=== PATIENT | female | born 1970 | race Caucasian/White ===

== ENCOUNTER 2018-06-20 16:21 | Emergency (ER) | payer OTHER ==
[~2018-06-20] VITALS: Ht 172.7 cm; Wt 83.9 kg
[~2018-06-20 16:21] MED LIST: ADDERALL 20 MG20 MG PO; ADDERALL PO; CELEXA20 MG PO; FIORINAL 50-321 EACH PO; HYDROCODON-ACE1 EA15 PO; IBUPROFEN400 MG PO; LORAZEPAM PO; LORAZEPAM2 MG PO
[2018-06-20] MEDS ORDERED: SODIUM CHLORIDE 0.9% 1000ML 1,000 ML IV STA (17:40)
[2018-06-20] MEDS ORDERED: FAMOTIDINE 20 MG/2 ML VIAL IV ONE (17:45)
[2018-06-20] MEDS ORDERED: ONDANSETRON HCL INJ 2MG/ML 2ML 2 MG/ML VIAL IV ONE (17:45)
[2018-06-20] MEDS ORDERED: KETOROLAC TROMETHAMINE 30 MG/ML VIAL IV ONE (19:00)
--- NOTE | 2018-06-20 19:19 | Diagnostic Imaging Report ---
EXAM: CT Abdomen and Pelvis WITH contrast INDICATION: Left lower quadrant abdominal pain. Dysuria. COMPARISON: None. TECHNIQUE: Abdomen and pelvis were scanned utilizing a multidetector helical scanner from the lung base to the pubic symphysis after administration of IV contrast. Coronal and sagittal reformations were obtained. Routine protocol was performed. Scan was performed when during portal venous phase. IV CONTRAST: 100 cc [id number]. ORAL CONTRAST: Water RADIATION DOSE: Total DLP: 697.80 mGy*cm Estimated effective dose: (DLP x 0.015 x size factor) mSv COMPLICATIONS: None FINDINGS: LINES and TUBES: None. LOWER THORAX: Unremarkable HEPATOBILIARY: 2 small hepatic hypodensities are too small to be characterize, however, most suggestive of benign etiology such as small cysts. No biliary ductal dilation. GALLBLADDER: Surgically absent. SPLEEN: No splenomegaly. PANCREAS: No focal masses or ductal dilatation. ADRENALS: No adrenal nodules KIDNEYS/URETERS: Kidneys enhance symmetrically. No hydronephrosis. No cystic or solid mass lesions. No stones. GI TRACT: No abnormal distention, wall thickening, or evidence of bowel obstruction. There is mild fatty infiltration of the descending colon and sigmoid colon wall which is nonspecific finding, however, which can be seen in chronic inflammatory bowel disease in the proper clinical setting. Appendix is nonvisualized, however, no evidence of appendicitis. PELVIC ORGANS/BLADDER: The uterus is absent. Bilateral ovaries are unremarkable. The urinary bladder is under distended, however, grossly unremarkable. Multiple small pelvic phleboliths. LYMPH NODES: No lymphadenopathy. VESSELS: There is mild atherosclerotic disease in the aorta and major arterial branches. PERITONEUM / RETROPERITONEUM: No free air or fluid. 2.4 cm fat attenuation structure with increased density surrounding inflammatory changes abutting the distal descending colon measuring 2.5 cm on axial images 64 and also seen on coronal image 48 consistent with epiploic appendagitis (not diverticulitis). BONES: Unremarkable. SOFT TISSUES: Unremarkable. IMPRESSION: 1. Left lower quadrant epiploic appendagitis (descending colon). Signed by: Dr. Raudel Pollack M.D. on 06/20/2018 7:16 PM
[2018-06-20 19:40] VITALS: BP 167/89
== END 2018-06-20 19:42 | disposition home or self-care (01) ==
LOC: FSED 16:21
DX: R10.32 Left lower quadrant pain (principal); K63.89 Other specified diseases of intestine
CPT/HCPCS: 74177; 80053; 81003; 85025; 99284; J1885; J2405; J7030

== ENCOUNTER → 2023-10-04 | Outpatient (REF) | payer OTHER ==
[~2023-10-04] MED LIST changes: +ARIPIPRAZOLE2 MG PO; +CYCLOBENZAPRINE10 MG PO; +GABAPENTIN300 MG PO; +IOPAMIDOL 370 MG/ML 100 ML INFUS..BTL INJ ONE; +LEVOTHYROXINE50 MCG PO; +LOSARTAN POTASS50 MG PO; +METHOCARBAMOL750 MG PO; +PROVENTIL HFA6.7 GM INH; +ROPINIROLE HCL1 MG PO; +ROSUVASTATIN CAL5 MG PO; +SYMBICORT 16010.2 GM INH; +TRAZODONE HCL50 MG PO; +VENLAFAXINE HC150 MG PO
[2023-10-04 14:12] LABS: CREATININE, SERUM 0.87 mg/dL (0.57-1.11)
== END ==
LOC: CT 13:04
PROVIDERS: ATTEND Internal Medicine Critical Care Medicine
DX: R91.8 Other nonspecific abnormal finding of lung field (principal); R59.9 Enlarged lymph nodes, unspecified
CPT/HCPCS: 36415; 71260; 82565; 84520; Q9967

== ENCOUNTER → 2023-10-04 | Outpatient (REF) | payer OTHER ==
[~2023-10-04] MED LIST changes: -IOPAMIDOL 370 MG/ML 100 ML INFUS..BTL INJ ONE
== END ==
LOC: MAMMO 13:17
PROVIDERS: ATTEND Internal Medicine
DX: Z12.31 Encounter for screening mammogram for malignant neoplasm of breast (principal)
CPT/HCPCS: 77067

== ENCOUNTER → 2023-10-16 | Outpatient (REF) | payer OTHER ==
[~2023-10-16] MED LIST changes: +IOPAMIDOL 370 MG/ML 100 ML INFUS..BTL INJ ONE; +METOPROLOL TARTRATE 25 MG TAB ONE; +METOPROLOL TARTRATE INJ 1 MG/ML VIAL ONE; +NITROGLYCERIN 0.4 MG SUBL ONE; +SODIUM CHLORIDE 0.9% 100 ML ONE
[2023-10-16 09:03] LABS: CREATININE, SERUM 0.95 mg/dL (0.57-1.11)
== END ==
LOC: CT 07:16
PROVIDERS: ATTEND Internal Medicine
DX: I20.9 Angina pectoris, unspecified (principal)
CPT/HCPCS: 36415; 75574; 82565; 84520; J7050; Q9967